=== PATIENT | female | born 1990 | race Caucasian/White ===

== ENCOUNTER 2017-12-01 14:18 | Emergency (ER) | payer OTHER, SELFPAY ==
[2017-12-01 14:35] VITALS: BP 116/69; PULSE 72; RESP 15; TEMP 36.6; O2SAT 100; BMI 35.5
--- NOTE | 2017-12-01 14:37 | DI.RAD.S_ITS ---
PROCEDURE: XR FOOT RT MIN 3V INDICATIONS: injured right foot TECHNIQUE: Pre-views of the foot were acquired. COMPARISON: None. FINDINGS: Bones: No fractures or dislocations. No suspicious bony lesions. Soft tissues: No tibiotalar joint effusion. Achilles tendon appears normal. IMPRESSION: No trauma found. A single medial right first metatarsal small cysts can be seen at a focus of bunion formation, measuring only approximately 5 mm in diameter. This might represent evidence of prior gallops. Dictated by: Meliton Ritter M.D. on 12/01/2017 at 14:55 Approved by: Meliton Ritter M.D. on 12/01/2017 at 14:56
--- NOTE | 2017-12-01 15:04 | ED_ITS ---
HPI - Extremity Injury (Lower) General Chief Complaint: Extremity Injury, Lower Stated Complaint: RT FOOT PAIN FROM FALL Time Seen by Provider: 12/01/17 15:04 Source: patient Mode of arrival: ambulatory Limitations: no limitations History of Present Illness HPI Narrative: Otherwise healthy 27-year-old female here for evaluation of right foot pain. 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 No specific injury. States that has hurt since then especially with standing for prolonged periods of time. No prior injury. Has not tried anything for this prior to arrival hurt Related Data Allergies Allergy/AdvReac Type Severity Reaction Status Date / Time No Known Drug Allergies Allergy Verified 12/01/17 14:35 Review of Systems Musculoskeletal Comments: Right foot pain Integumentary/Breasts Denies lesions and Denies rash Neurologic Comments: No numbness and tingling in the right foot Hematologic/Lymphatic Denies easy bleeding and Denies easy bruising PFSH Medical History Healthy adult (Acute) Surgical History No history of previous surgery (Acute) Social History Smoking Status: Former smoker Exam Initial Vital Signs Initial Vital Signs: Vital Signs Temperature 97.9 F 12/01/17 14:35 Pulse Rate 72 12/01/17 14:35 Respiratory Rate 15 12/01/17 14:35 Blood Pressure 116/69 12/01/17 14:35 Pulse Oximetry 100 12/01/17 14:35 Const General: cooperative, healthy appearing, comfortable, well developed, well groomed and No acute distress Orientation: alert, awake and oriented x3 Resp Effort & Inspection: normal respiratory effort Cardio Pulses: dorsalis pedis present on the right Skin Lesions: no lesions Rashes: no rashes Neuro General: alert, awake and oriented x3 Sensory Exam: no sensory deficits noted Extrem Other: Right knee unremarkable Right proximal fibula unremarkable Full range of motion right ankle Right foot tenderness palpation on the plantar aspect at the base of the metatarsals Psych Appearance: grossly normal and well kempt Course Orders Ordered: ED Orders 12/01/17 14:37 XR foot RT min 3V Stat Vital Signs - 8 hr 12/01/17 14:35 Temperature 97.9 F Pulse Rate 72 Respiratory Rate 15 Blood Pressure 116/69 Pulse Oximetry 100 MDM - Extremity Injury (Lower) Imaging Data X-ray ankle: Radiologist's impression: [address] [address] XRay Report Signed Patient: Jorge Faulkner#: [id number] : 1990Acct:[id number] Age/Sex: 27 / FDate of Service: 12/01/17 Loc: ED Accession Number: [id number] Procedure: XR foot RT min 3V Ordering Provider: Sudheer Tovar D.O. PROCEDURE: XR FOOT RT MIN 3V INDICATIONS: injured right foot TECHNIQUE: Pre-views of the foot were acquired. COMPARISON: None. FINDINGS: Bones: No fractures or dislocations. No suspicious bony lesions. Soft tissues: No tibiotalar joint effusion. Achilles tendon appears normal. IMPRESSION: No trauma found. A single medial right first metatarsal small cysts can be seen at a focus of bunion formation, measuring only approximately 5 mm in diameter. This might represent evidence of prior gallops. Dictated by: Meliton Ritter M.D. on 12/01/2017 at 14:55 Approved by: Meliton Ritter M.D. on 12/01/2017 at 14:56 [facility] Narrative Medical decision making narrative: Neurovascularly intact No fractures on the x-ray Suspect contusion versus ligamentous injury. I did discuss this with the patient. She has an ankle brace at home which I informed her she could use for support. Informed her that she needs to follow up with her primary care doctor to discuss the indications for referral to see Ortho she was given return precautions. She expressed understanding and agreement plan. Discharge Plan Departure Patient Disposition: Home Clinical Impression: Contusion of foot Instructions: How To Perform RICE (Rest, Ice, Compress, Elevate), DI for Foot Sprain Activity Restrictions/Additional Instructions: Use the ankle brace likely discussed. Also recommend that you ice your foot like we discussed. Call your primary care doctor for a follow-up. Return to the emergency department for any new or worsening symptoms
== END 2017-12-01 15:45 | disposition home or self-care (01) ==
PROVIDERS: Emergency Provider Emergency Medicine
DX: S90.31XA Contusion of right foot, initial encounter (principal); Y93.02 Activity, running
CPT/HCPCS: 73630; 99282; 99283